=== PATIENT | male | born 1935 | race Caucasian/White ===

== ENCOUNTER 2022-02-09 16:30 | Inpatient (IN) | payer MEDICARE, OTHER ==
[~2022-02-09] VITALS: Ht 172.7 cm; Wt 44.9 kg
--- NOTE | 2022-02-09 16:55 | NUR ---
BIBPA FOR SOB 87% IN ROOM AIR AND COVID + OF TODAY. THE PATIENT IS ATTACHED TO THE MONITOR. THE PATIENT IS PLACED ON OXYGEN 2L/MIN VIA NASAL CANNULA AND SATURATION IS AT 97%. RESPIRATION REGULAR AND UNLABORED. WILL CONTINUE TO MONITOR THE PATIENT.
[2022-02-09] MEDS ORDERED: IV NS 0.9% 1,000 ML BAG IV ONE (17:00)
[2022-02-09] MEDS ORDERED: CEFTRIAXONE 1 G in IV D5W 50 ML IV ONE (17:00)
[2022-02-09] MEDS ORDERED: DEXAMETHASONE SOD PHOSPHATE 6 MG in IV D5W 50 ML IV ONE (17:00)
[2022-02-09] MEDS ORDERED: ASCO-352 PO (17:05)
[2022-02-09] MEDS ORDERED: AMIN887L7 PO (17:05)
[2022-02-09] MEDS ORDERED: TYL2T PO (17:05)
[2022-02-09] MEDS ORDERED: TRAM50TA2 PO (17:05)
[2022-02-09] MEDS ORDERED: RIVA10TA PO (17:05)
[2022-02-09] MEDS ORDERED: ZINC220T3 PO (17:05)
[2022-02-09] MEDS ORDERED: DIGO250T PO (17:05)
[2022-02-09] MEDS ORDERED: ACET-868 PO (17:05)
[2022-02-09] MEDS ORDERED: MULT-754 PO (17:05)
[2022-02-09] MEDS ORDERED: ATOR40TA PO (17:05)
[2022-02-09] MEDS ORDERED: TRAM-351 PO (17:05)
[2022-02-09] MEDS ORDERED: CHOL100043 PO (17:05)
[2022-02-09] MEDS ORDERED: MAGN400O6 PO (17:05)
[2022-02-09] MEDS ORDERED: DOCU-141 PO (17:05)
[2022-02-09] MEDS ORDERED: METO25TA20 PO (17:05)
--- NOTE | 2022-02-09 17:26 | NUR ---
IV LINE ESTABLISHED ON DL #18, BLOOD DRAWN AND SET TO LAB. COVID SWAB DONE AND SENT TO LAB.
[2022-02-09] MEDS ORDERED: CEFTRIAXONE 1GM BAG (ER ONLY) 50 ML IV ONE (17:29)
[2022-02-09] MEDS ORDERED: DEXAMETHASONE SOD PHOSPHATE 10 MG/ML VIAL ONE (17:30)
--- NOTE | 2022-02-09 17:32 | NUR ---
NUMERICAL CONTROL MACHINE MACHINIST AT THE BEDSIDE
[2022-02-09 17:45] LABS: BASOPHILS # (AUTO) 0.1 K/uL (0.0-0.2); HEMATOCRIT 41 % (39-51); HEMOGLOBIN 13.5 g/dL (13.5-17.5); LYMPHOCYTES # (AUTO) 0.2 K/uL (0.8-4.8); LYMPHOCYTES % (AUTO) 1.8 % (20.0-44.0); MEAN CORPUSCULAR HGB CONC 33 g/dl (31.0-36.0); MEAN CORPUSCULAR VOLUME 90 fL (80-96); MONOCYTES # (AUTO) 0.8 K/uL (0.1-1.30); MONOCYTES % (AUTO) 6.4 % (2.0-12.0); NEUTROPHILS % (AUTO) 90.8 % (43.0-81.0); PLATELET COUNT (AUTO) 310 K/uL (150-450); RED BLOOD CELL COUNT(AUTO) 4.52 MIL/uL (4.5-6.0); WHITE BLOOD COUNT (AUTO) 12.1 K/uL (4.3-11.0)
--- NOTE | 2022-02-09 17:48 | NUR ---
MIDLINE ORDER PER DR SORIA. NOTED AND CARRIED OUT.
--- NOTE | 2022-02-09 17:50 | NUR ---
CHANGE IN ORDER FROM MIDLINE TO PICCLINE PER DR SORIA. ORDER READ BACK, VERIFIED. NOTED AND CARRIED OUT.
[2022-02-09 17:51] LABS: BILIRUBIN,URINE NEGATIVE (NEGATIVE); COLOR,URINE DARK YELLOW (YELLOW); LEUKOCYTE ESTERASE ,URINE NEGATIVE (NEGATIVE); NITRITE, URINE NEGATIVE (NEGATIVE); PH,URINE 5.5 (5.0-8.0); PROTEIN,URINE 30 mg/dl (NEGATIVE); UGLUCOSE NEGATIVE (NEGATIVE)
[2022-02-09] MEDS ORDERED: AMIODARONE 150 MG in IV D5W 100 ML IV ONE (18:00)
[2022-02-09] MEDS ORDERED: AMIODARONE 450 MG in IV D5W 250 ML IV ONE (18:00)
[2022-02-09] MEDS ORDERED: DEXAMETHASONE SOD PHOSPHATE 4 MG/ML VIAL IV ONE (18:00)
--- NOTE | 2022-02-09 18:23 | NUR ---
AMIO LOADING DOSE ORDER NOTED. VS TAKEN AND RECORDED.
[2022-02-09 18:26] LABS: CALCIUM, SERUM 8.2 mg/dL (8.5-10.1); CARBON DIOXIDE 28 mmol/L (21-32); CHLORIDE 102 mmol/L (98-107); CREATININE 1.1 mg/dL (0.6-1.3); GLUCOSE 114 mg/dL (74-106); SODIUM SERUM 138 mmol/L (136-145); UREA NITROGEN, BLOOD 37 mg/dL (7-18)
[2022-02-09 18:41] LABS: ALANINE AMINOTRANSFERASE 61 U/L (12-78); ALBUMIN 2.8 g/dL (3.4-5.0); ALKALINE PHOSPHATASE 202 U/L (46-116); ASPARTATE AMINOTRANSFERASE 72 U/L (15-37); BILIRUBIN,DIRECT 0.2 mg/dL (0.0-0.2); BILIRUBIN,TOTAL 0.6 mg/dL (0.2-1.0); TOTAL PROTEIN, SERUM 6.7 g/dL (6.4-8.2)
[2022-02-09 18:47] LABS: BACTERIA,URINE Few /HPF (None Seen); CALCIUM OXALATE CRYSTALS,UR Few /HPF (None Seen); RBC,URINE 51-80 /HPF (0-2); SQUAMOUS EPITHELIAL CELL,UR Few /HPF (None Seen)
--- NOTE | 2022-02-09 18:48 | NUR ---
AMIO 1MG/MIN STARTED. VS TAKEN AND RECORDED.
--- NOTE | 2022-02-09 19:29 | NUR ---
PER HUEY AT FACILITY PATIENT HAS REC'D 15 MG OF XARELTO TODAY AT 0900
--- NOTE | 2022-02-09 19:48 | NUR ---
ICU RM 255
--- NOTE | 2022-02-09 20:07 | NUR ---
PICC LINE NURSE AT BED SIDE FOR PICC LINE INSERTION. DR SORIA SIGNED THE CONSENT
--- NOTE | 2022-02-09 20:14 | NUR ---
REPORT GIVEN TO NIDIA PHAM FOR ZACKARY
--- NOTE | 2022-02-09 20:17 | NUR ---
REVERSE UNIT OPERATOR AT PT'S BEDSIDE
[2022-02-09] MEDS ORDERED: ACETAMINOPHEN PO PRN (20:30)
[2022-02-09] MEDS ORDERED: Z GUARD REMEDY 4 OZ OINT TP PRN (20:30)
[2022-02-09] MEDS ORDERED: TRAMADOL HCL PO PRN (20:30)
[2022-02-09] MEDS ORDERED: MAG HYDROX/AL HYDROX/SIMETH 30 ML UDC PO PRN (20:30)
[2022-02-09] MEDS ORDERED: [UNRECOGNIZED DRUG - OTHER] PO PRN (20:30)
[2022-02-09] MEDS ORDERED: TRAMADOL HCL 50 MG TABLET PO PRN (20:30)
[2022-02-09] MEDS ORDERED: ACETAMINOPHEN 325 MG TABLET PO PRN (20:30)
[2022-02-09] MEDS ORDERED: MAGNESIUM HYDROXIDE 30 ML UDC PO PRN ×2 (20:30)
[2022-02-09] MEDS ORDERED: ONDANSETRON HCL/PF 4 MG/2 ML VIAL IVP PRN (20:30)
--- NOTE | 2022-02-09 20:35 | NUR ---
PICC LINE READY FOR USE PER PICC LINE NURSE
[2022-02-09 21:30] VITALS: BP 125/62
[2022-02-09 21:54] VITALS: BP 125/62
[2022-02-09 22:00] VITALS: BP 97/64
[2022-02-09] MEDS ORDERED: ZOLPIDEM TARTRATE 5 MG TABLET PO PRN (22:00)
[2022-02-09] MEDS: ATORVASTATIN 40 MG TABLET PO SCH (22:04)
[2022-02-09] MEDS ORDERED: AMIODARONE 450 MG in IV D5W 241 ML IV SCH (22:30)
[2022-02-10] VITALS (15 sets, daily range): BP systolic 88–132; BP diastolic 45–83
--- NOTE | 2022-02-10 03:52 | NUR ---
am care given. remaining same oxygen tolerated well. sat 98%. no acute distresmiodarone one bag finished. will monitor vitals.
[2022-02-10 04:03] LABS: BASOPHILS % (AUTO) 0.1 % (0.0-2.0); HEMATOCRIT 36 % (39-51); HEMOGLOBIN 12.1 g/dL (13.5-17.5); LYMPHOCYTES # (AUTO) 0.4 K/uL (0.8-4.8); LYMPHOCYTES % (AUTO) 4.7 % (20.0-44.0); MEAN CORPUSCULAR HGB CONC 34 g/dl (31.0-36.0); MEAN CORPUSCULAR VOLUME 89 fL (80-96); MONOCYTES # (AUTO) 0.3 K/uL (0.1-1.30); MONOCYTES % (AUTO) 3.6 % (2.0-12.0); NEUTROPHILS # (AUTO) 7.3 K/uL (1.8-8.9); NEUTROPHILS % (AUTO) 91.6 % (43.0-81.0); PLATELET COUNT (AUTO) 265 K/uL (150-450); RED BLOOD CELL COUNT(AUTO) 4.02 MIL/uL (4.5-6.0); WHITE BLOOD COUNT (AUTO) 7.9 K/uL (4.3-11.0)
[2022-02-10 04:15] LABS: CALCIUM, SERUM 8.3 mg/dL (8.5-10.1); CARBON DIOXIDE 26 mmol/L (21-32); CHLORIDE 104 mmol/L (98-107); CREATININE 0.9 mg/dL (0.6-1.3); GLUCOSE 121 mg/dL (74-106); MAGNESIUM 1.9 mg/dL (1.8-2.4); PHOSPHORUS 4.2 mg/dL (2.5-4.9); POTASSIUM 4.1 mmol/L (3.5-5.1); SODIUM SERUM 138 mmol/L (136-145); UREA NITROGEN, BLOOD 35 mg/dL (7-18)
[2022-02-10 04:19] LABS: CHOLESTEROL 189 mg/dL (<200); HDL CHOLESTEROL 53 mg/dL (40-60); LDL 118 mg/dL (0-99); TRIGLYCERIDES 70 mg/dL (30-150)
--- NOTE | 2022-02-10 07:26 | NUR ---
WOUND CARE CONSULT: REVIEWED CHART, NURSING DOCUMENTATION AND PHOTOS WHICH INDICATE DRY ABRASIONS TO RT AND LEFT KNEE AREAS, RASH TO PERINEUM, DISCOLORATION TO MULTIPLE AREAS OF BODY, SACRAL INTACT DEEP TISSUE INJURY AND FOOT WOUNDS, PRESENT ON ADMISSION. DPM CONSULT TO BE CALLED TO DR FRANCISCO. RECOMMENDATIONS MADE FOR SKIN PROTECTION. DISCUSSED WITH NURSING STAFF.MD IN AGREEMENT WITH PLAN OF CARE.
--- NOTE | 2022-02-10 07:58 | NUR ---
DR. NARVAEZ WITH DARDEN CATHETER INSERTION ORDER . NOTED AND WILL CARRY OUT.
[2022-02-10] MEDS: DOCUSATE SODIUM 100 MG CAPSULE PO SCH ×2 (08:32→16:59)
[2022-02-10] MEDS: ZINC SULFATE 220 MG CAPSULE PO SCH (08:32)
[2022-02-10] MEDS: CHOLECALCIFEROL 1,000 UNIT TABLET (VIT D3) PO SCH (08:32)
[2022-02-10] MEDS: ASPIRIN 81 MG TAB.CHEW PO SCH (08:32)
[2022-02-10] MEDS: RIVAROXABAN 15 MG TABLET PO SCH (08:34)
[2022-02-10] MEDS: METOPROLOL TARTRATE 25 MG TABLET PO SCH ×2 (08:35→21:49)
[2022-02-10] MEDS: ASCORBIC ACID 500 MG TABLET PO SCH (08:36)
[2022-02-10] MEDS: MULTIVITAMINS,THERAGRAN 1 UDTAB TABLET PO SCH (08:36)
[2022-02-10] MEDS: DIGOXIN 0.25 MG TABLET PO SCH (08:36)
[2022-02-10] MEDS: DEXAMETHASONE SOD PHOSPHATE 10 MG/ML VIAL IV SCH (08:36)
[2022-02-10] MEDS: PROSTAT (PYXIS) 30 ML UDC PO SCH ×2 (08:40→18:03)
[2022-02-10] MEDS ORDERED: METOPROLOL TARTRATE 25 MG TABLET PO SCH (09:00)
[2022-02-10] MEDS: CLOTRIMAZOLE 1% 15 GM TUBE TP SCH ×2 (09:25→17:23)
--- NOTE | 2022-02-10 09:30 | NUR ---
DARDEN CATHETER INSERTION DONE PER PROTOCOL.
--- NOTE | 2022-02-10 10:08 | NUR ---
SPOKE WITH TOR BERRIOS-PATIENT'S DAUGHTER AND MADE AWARE OF THE TRANSFER ORDER TO TELEMETRY UNIT ROOM 106.AND SHE OKAYED WITH IT.
--- NOTE | 2022-02-10 11:35 | NUR ---
PATIENT WAS TRANSFERRED TO TELEMETRY RM 106 PER PROTOCOL, PT. REMAINS STABLE AND NO ACUTE DISTRESS NOTED AT THIS TIME. BEDSIDE REPORT/ENDORSEMENT GIVEN TO CHERYL.
--- NOTE | 2022-02-10 11:35 | NUR ---
RN NOTES: RECEIVED PT FROM ICU BEDSIDE REPORT RECEIVED FROM ALLYSON RN, PT ALERT X 2 WITH PERIODS OF CONFUSION, RESPIRATION IS EVEN AND UNLABORED, O2 SAT 97% ON O2 AT 2L/NC, LEFT UPPER ARM PICC LINE AND SALINE LOCK PATENT AND INTACT, ON CONTACT AND DROPLET ISOLATION FOR COVID, DARDEN CATH PATENT WITH CLEAR YELLOW URINE, BED KEPT IN LOW AND LOCKED POSITIONS, SIDERAILS UP. WILL MONITOR PT
[2022-02-10] MEDS: MUPIROCIN OINT 2% 22 GM TUBE TP SCH (14:43)
[2022-02-10] MEDS ORDERED: CLOTRIMAZOLE 1% 15 GM TUBE TP SCH (17:00)
--- NOTE | 2022-02-10 19:01 | NUR ---
RN CLOSING NOTES: PT IN BED AWAKE & ALERT X 2 WITH PERIODS OF CONFUSION, RESPIRATION IS EVEN AND UNLABORED, O2 SAT 97% ON O2 AT 2L/NC, LEFT UPPER ARM PICC LINE AND SALINE LOCK PATENT AND INTACT, ON CONTACT AND DROPLET ISOLATION FOR COVID, DARDEN CATH PATENT WITH CLEAR YELLOW URINE, BED KEPT IN LOW AND LOCKED POSITIONS, SIDERAILS REMAINS UP, WILL ENDORSE TO ONCOMING SHIFT TO MONITOR
--- NOTE | 2022-02-10 19:30 | NUR ---
EDI MANAGER OPENING NOTES: RECEIVED PT IN BED, A/O X 2-3 WITH PERIODS OF CONFUSION. ON O2 THERAPY VIA NC AT 2 LPM, TOLERATING WELL WITH NO S/SX OF ACUTE DISTRESS NOTED AT THIS TIME. RESPIRATION IS EVEN AND UNLABORED, O2 SAT IS AT 97%. TELE MONITOR SHOWS AFIB CONTROLLED WITH HR IN THE 90S. IV ACCESS NOTED AT LEFT UPPER ARM BOTH PICC LINE AND SALINE LOCK, PATENT AND INTACT. DARDEN CATHETER IN PLACE WITH CLEAR YELLOW URINE DRAINING VIA GRAVITY. KEPT HOB ELEVATED. ALL SAFETY MEASURES IN PLACE: BED IN LOWEST POSITION, LOCKED. BED ALARM ON. SIDE RAILS UP. WILL CONTINUE TO MONITOR FOR ANY CHANGES.
[2022-02-10] MEDS: ATORVASTATIN 40 MG TABLET PO SCH (21:48)
[2022-02-11] VITALS: BP 132/66
[2022-02-11] MEDS: MUPIROCIN OINT 2% 22 GM TUBE TP SCH ×2 (01:31→13:58)
--- NOTE | 2022-02-11 03:05 | NUR ---
RN NOTE PT'S LEADS WERE OFF. TRIED TO REPLACED IT BUT PT REFUSED THREE TIMES. PT SEEMS TO BE CONFUSED AND A LITTLE AGITATED. DID NOT WANT TO BE DISTURBED OR TOUCHED. CHARGE NURSE AASHISH MADE AWARE. INFORMED DR. MUÑOZ TOO REGARDING PT'S REFUSAL TO PUT HIS LEADS ON. WILL CONTINUE TO MONITOR PT CLOSELY.
[2022-02-11 04:00] VITALS: BP 132/66
--- NOTE | 2022-02-11 04:15 | NUR ---
RN NOTE PT REFUSED TO HAVE HIS VITALS SIGNS TAKEN FOR 0000 AND 0400. HE ALSO REFUSED TO BE CLEANED. HE JUST DID NOT WANT TO BE BOTHERED. EXPLAINED TO PT WE NEED TO GET HIS VS TAKEN BUT STILL REFUSED. PT IS A LITTLE AGITATED AND CONFUSED. WILL CONTINUE TO MONITOR PT CLOSELY.
--- NOTE | 2022-02-11 07:20 | NUR ---
RN OPENING NOTES RECEIVED PATIENT FROM NIGHTSHIFT RN. CURRENTLY AWAKE IN BED. ON BEDREST, WITH BED ALARM. IV ACCESS ON DL PICC LINE SALINE LOCK. REFUSING HEART MONITORING AND REFUSING O2 VIA NASAL CANNULA, NO SIGNS OF DISTRESS. REDNESS NOTED THROUGHOUT THE SKIN, NO OPEN WOUNDS. WILL CONTINUE PLAN OF CARE AND ANTICIPATE NEEDS.
[2022-02-11 08:00] VITALS: BP 129/75
--- NOTE | 2022-02-11 08:04 | NUR ---
RN NOTE ROUNDED ON PATIENT. NOTICED CLIN APPLICATION SPECIALIST LEADS WERE DISCONNECTED. WHEN ASKED IF I COULD REATTACHED THE LEADS TO GET A PICTURE OF HIS HEART THE PATIENT REPLIED, 'NO NO NO'. NO SIGNS OF DISTRESS NOTED. PATIENT REPORTED NO SOB . WILL CONTINUE PLAN OF CARE AND ANTICIPATE NEEDS.
[2022-02-11] MEDS: CLOTRIMAZOLE 1% 15 GM TUBE TP SCH ×2 (09:00→17:16)
[2022-02-11] MEDS ORDERED: ATORVASTATIN 10 MG TABLET PO SCH (09:30)
[2022-02-11] MEDS: PROSTAT (PYXIS) 30 ML UDC PO SCH ×2 (09:42→17:19)
[2022-02-11] MEDS: DOCUSATE SODIUM 100 MG CAPSULE PO SCH ×2 (09:43→17:10)
[2022-02-11] MEDS: ZINC SULFATE 220 MG CAPSULE PO SCH (09:43)
[2022-02-11] MEDS: DEXAMETHASONE SOD PHOSPHATE 10 MG/ML VIAL IV SCH (09:43)
[2022-02-11] MEDS: MULTIVITAMINS,THERAGRAN 1 UDTAB TABLET PO SCH (09:43)
[2022-02-11] MEDS: ASCORBIC ACID 500 MG TABLET PO SCH (09:43)
[2022-02-11] MEDS: ASPIRIN 81 MG TAB.CHEW PO SCH (09:43)
[2022-02-11] MEDS: METOPROLOL TARTRATE 25 MG TABLET PO SCH (09:44)
[2022-02-11] MEDS: DIGOXIN 0.25 MG TABLET PO SCH (09:44)
[2022-02-11] MEDS: CHOLECALCIFEROL 1,000 UNIT TABLET (VIT D3) PO SCH (09:44)
[2022-02-11] MEDS: RIVAROXABAN 15 MG TABLET PO SCH (09:45)
[2022-02-11 11:05] LABS: BASOPHILS % (AUTO) 0.3 % (0.0-2.0); EOSINOPHILS % (AUTO) 0.1 % (0.0-6.0); HEMATOCRIT 34 % (39-51); HEMOGLOBIN 11.7 g/dL (13.5-17.5); LYMPHOCYTES # (AUTO) 0.6 K/uL (0.8-4.8); LYMPHOCYTES % (AUTO) 7.8 % (20.0-44.0); MEAN CORPUSCULAR HGB CONC 34 g/dl (31.0-36.0); MEAN CORPUSCULAR VOLUME 89 fL (80-96); MONOCYTES # (AUTO) 0.4 K/uL (0.1-1.30); MONOCYTES % (AUTO) 5.4 % (2.0-12.0); NEUTROPHILS # (AUTO) 6.6 K/uL (1.8-8.9); NEUTROPHILS % (AUTO) 86.4 % (43.0-81.0); PLATELET COUNT (AUTO) 253 K/uL (150-450); RED BLOOD CELL COUNT(AUTO) 3.88 MIL/uL (4.5-6.0); WHITE BLOOD COUNT (AUTO) 7.6 K/uL (4.3-11.0)
[2022-02-11 11:47] LABS: ALBUMIN 2.4 g/dL (3.4-5.0); BILIRUBIN,TOTAL 0.4 mg/dL (0.2-1.0); CALCIUM, SERUM 8.2 mg/dL (8.5-10.1); CREATININE 0.9 mg/dL (0.6-1.3); PHOSPHORUS 2.1 mg/dL (2.5-4.9); POTASSIUM 3.9 mmol/L (3.5-5.1)
[2022-02-11 12:00] VITALS: BP 96/66
[2022-02-11] MEDS ORDERED: DEXA4TAB PO (13:13)
[2022-02-11] MEDS ORDERED: K PHOS NEUTRAL 250 MG TABLET PO ONE (15:30)
[2022-02-11 16:00] VITALS: BP 105/67
--- NOTE | 2022-02-11 16:05 | NUR ---
CONTINUING EDUCATION INSTRUCTOR NOTE CALLED TO SNF , SPOKE WITH PADDY REPORT GIVEN ALSO SPOKE WITH TOR DAUGHTER AWARE THAT PATIENT WILL BE DISCHARGE TO SNF
--- NOTE | 2022-02-11 18:48 | NUR ---
outdoor fitness trainer note [facility] . All discharge instructions were provided to the ALEJANDRO in print and verbal.PICC line was removed.Report was given to the peoplesoft taleo manager Amie. Patient is discharged from the [facility]
== END 2022-02-11 19:00 | DRG 177 ==
LOC: ER 16:36 → TRANSITION 19:51 → ICU 20:46 → TELE1 02-10 12:01
PROVIDERS: ADMIT Family Medicine; ATTEND Internal Medicine
PROC: 02HV33Z Insertion of Infusion Device into Superior Vena Cava, Percutaneous Approach (ICD-10-PCS; principal; 2022-02-09)
PROC: B548ZZA Ultrasonography of Superior Vena Cava, Guidance (ICD-10-PCS; 2022-02-09)
DX: U07.1 COVID-19 (principal); J96.01 Acute respiratory failure with hypoxia; I21.A1 Myocardial infarction type 2; N17.0 Acute kidney failure with tubular necrosis; D68.59 Other primary thrombophilia; E44.0 Moderate protein-calorie malnutrition; I69.351 Hemiplegia and hemiparesis following cerebral infarction affecting right dominant side; N39.0 Urinary tract infection, site not specified; I48.91 Unspecified atrial fibrillation; I25.10 Atherosclerotic heart disease of native coronary artery without angina pectoris; Z79.01 Long term (current) use of anticoagulants; R27.8 Other lack of coordination; Z79.899 Other long term (current) drug therapy; D72.829 Elevated white blood cell count, unspecified; I95.9 Hypotension, unspecified; R73.9 Hyperglycemia, unspecified; I11.9 Hypertensive heart disease without heart failure; E88.09 Other disorders of plasma-protein metabolism, not elsewhere classified; F09 Unspecified mental disorder due to known physiological condition; M60.9 Myositis, unspecified; Z87.891 Personal history of nicotine dependence; Z91.19 Patient's noncompliance with other medical treatment and regimen; B35.1 Tinea unguium; E78.5 Hyperlipidemia, unspecified; M62.472 Contracture of muscle, left ankle and foot; M62.471 Contracture of muscle, right ankle and foot; S90.01XA Contusion of right ankle, initial encounter; X58.XXXA Exposure to other specified factors, initial encounter; Y92.9 Unspecified place or not applicable; L90.9 Atrophic disorder of skin, unspecified; L97.519 Non-pressure chronic ulcer of other part of right foot with unspecified severity; L97.529 Non-pressure chronic ulcer of other part of left foot with unspecified severity; Z87.81 Personal history of (healed) traumatic fracture
CPT/HCPCS: 36415; 71045-TC; 80048-TC; 80053-TC; 80061-TC; 80076-TC; 80162-TC; 81001; 83605-TC; 83735-TC; 83880; 84100-TC; 84484-TC; 85025-TC; 85378-TC; 85730-TC; 86140-TC; 87040-TC; 87086-TC; 93307-TC; 94799-TC; C9803; G0378; J0282; J0696; J1100; J3490; J7030; J7060

== ENCOUNTER 2022-02-21 14:52 | Inpatient (IN) | payer MEDICARE, OTHER ==
[~2022-02-21] VITALS: Ht 172.7 cm; Wt 54.5 kg
[~2022-02-21 14:52] MED LIST: ACET-868 PO; AMIN887L7 PO; ASCO-352 PO; ATOR40TA PO; CHOL100043 PO; DEXA4TAB PO; DIGO250T PO; DOCU-141 PO; MAGN400O6 PO; METO25TA20 PO; MULT-754 PO; RIVA10TA PO; TRAM-351 PO; TRAM50TA2 PO; TYL2T PO; ZINC220T3 PO
--- NOTE | 2022-02-21 14:59 | NUR ---
BIB RA [facility] FROM [facility],MORE ALTERED THAN NORMAL AND HOT TO TOUCH. PATIENT ATTCHED OT MONITOR, HR IS ELEVATED, RECTAL TEMP OF 103.4 MD AWARE. A&OX1. NONREBREATHER APPLIED 15L. DR SORIA AT BEDSIDE. AWAITING EVAL.
[2022-02-21] MEDS ORDERED: PIPERACILLIN /TAZOBACTAM 3.375 G in IV D5W 50 ML IV ONE (15:00)
[2022-02-21] MEDS ORDERED: IV NS 0.9% 1,000 ML BAG IV ONE ×2 (15:00→16:00)
[2022-02-21] MEDS ORDERED: ACETAMINOPHEN 650 MG/SUPP.RECT RC ONE ×2 (15:04→15:30)
--- NOTE | 2022-02-21 15:05 | NUR ---
IV ESTBALIHSED R AC 18G. LABS DRAWN AND COLLECTED AT BEDSIDE. ADDITION IV ESTABLIHSED L AC 18G.
--- NOTE | 2022-02-21 15:06 | NUR ---
COVID TEST COLLECTED AND SENT
[2022-02-21] MEDS ORDERED: DEXAMETHASONE SOD PHOSPHATE 10 MG/ML VIAL ONE (15:09)
--- NOTE | 2022-02-21 15:12 | NUR ---
16FR DARDEN CATHETER PLACE, 40CC OF URINE OUTPUT. URINE COLLECTED AND SENT TO LAB.
[2022-02-21] MEDS ORDERED: HONE15GE TP (15:14)
[2022-02-21] MEDS ORDERED: POVI3780 TP (15:14)
[2022-02-21 15:19] LABS: BASOPHILS # (AUTO) 0.2 K/uL (0.0-0.2); BASOPHILS % (AUTO) 1.1 % (0.0-2.0); HEMATOCRIT 39 % (39-51); HEMOGLOBIN 12.7 g/dL (13.5-17.5); LYMPHOCYTES # (AUTO) 0.3 K/uL (0.8-4.8); LYMPHOCYTES % (AUTO) 1.9 % (20.0-44.0); MEAN CORPUSCULAR HGB CONC 33 g/dl (31.0-36.0); MEAN CORPUSCULAR VOLUME 90 fL (80-96); MONOCYTES # (AUTO) 0.9 K/uL (0.1-1.30); MONOCYTES % (AUTO) 6.1 % (2.0-12.0); NEUTROPHILS # (AUTO) 13.6 K/uL (1.8-8.9); NEUTROPHILS % (AUTO) 90.9 % (43.0-81.0); PLATELET COUNT (AUTO) 286 K/uL (150-450); RED BLOOD CELL COUNT(AUTO) 4.34 MIL/uL (4.5-6.0)
--- NOTE | 2022-02-21 15:20 | NUR ---
MOVE SHEET SUBMITTED.
--- NOTE | 2022-02-21 15:28 | NUR ---
PT TAKEN TO CT VIA [facility]
[2022-02-21] MEDS ORDERED: DEXAMETHASONE SOD PHOSPHATE 4 MG/ML VIAL IV ONE (15:30)
--- NOTE | 2022-02-21 15:42 | NUR ---
ORION MARISELA COLLECTED AND SENT
[2022-02-21 15:43] LABS: BILIRUBIN,URINE NEGATIVE (NEGATIVE); COLOR,URINE YELLOW (YELLOW); LEUKOCYTE ESTERASE ,URINE NEGATIVE (NEGATIVE); NITRITE, URINE NEGATIVE (NEGATIVE); PROTEIN,URINE 100 mg/dl (NEGATIVE); UGLUCOSE NEGATIVE (NEGATIVE)
--- NOTE | 2022-02-21 15:51 | NUR ---
RT AT BEDSIDE FOR ABG
[2022-02-21] MEDS ORDERED: VANCOMYCIN 1 GM in IV D5W 250 ML IV ONE (16:00)
[2022-02-21 16:03] LABS: ABG BASE EXCESS 2.1 mmol/L; ABG PH 7.566 (7.350-7.450); ABG PO2 127.9 mmHg (75.0-100.0); COHb 0.1 % (0.5-1.5); MetHb 0.3 % (0.0-1.5); O2Hb 98.3 % (94.0-97.0); SITE, ABG Left Radial; VENT MODE, BG 15 L NRB
[2022-02-21 16:05] LABS: ALANINE AMINOTRANSFERASE 36 U/L (12-78); ALBUMIN 2.3 g/dL (3.4-5.0); ALKALINE PHOSPHATASE 147 U/L (46-116); ASPARTATE AMINOTRANSFERASE 23 U/L (15-37); BILIRUBIN,DIRECT 0.2 mg/dL (0.0-0.2); BILIRUBIN,TOTAL 0.9 mg/dL (0.2-1.0); CALCIUM, SERUM 9.1 mg/dL (8.5-10.1); CARBON DIOXIDE 27 mmol/L (21-32); CHLORIDE 103 mmol/L (98-107); CREATININE 1.1 mg/dL (0.6-1.3); GLUCOSE 155 mg/dL (74-106); POTASSIUM 4.9 mmol/L (3.5-5.1); SODIUM SERUM 137 mmol/L (136-145); TOTAL PROTEIN, SERUM 6.6 g/dL (6.4-8.2); UREA NITROGEN, BLOOD 31 mg/dL (7-18)
--- NOTE | 2022-02-21 16:21 | NUR ---
BED ASSIGNED,ICU 254
[2022-02-21 16:24] LABS: BACTERIA,URINE RARE /HPF (None Seen); CALCIUM OXALATE CRYSTALS,UR Few /HPF (None Seen); MUCUS,URINE Many /LPF (None Seen); RBC,URINE 51-80 /HPF (0-2); SQUAMOUS EPITHELIAL CELL,UR 0-2 /HPF (None Seen)
--- NOTE | 2022-02-21 16:37 | NUR ---
[facility] CALLED CANDY PULLER PAGED.
--- NOTE | 2022-02-21 16:50 | NUR ---
REPORT GIVEN TO CONSUELO FOR ZACKARY
--- NOTE | 2022-02-21 16:50 | NUR ---
Ryanne wang in [facility] - 02/21/22 at 1726 by AKOSUA REPORT GIVEN TO ROXANNE RAYMUNDO
[2022-02-21] MEDS ORDERED: MAG HYDROX/AL HYDROX/SIMETH 30 ML UDC PO PRN (17:00)
[2022-02-21] MEDS ORDERED: ONDANSETRON HCL/PF 4 MG/2 ML VIAL IVP PRN (17:00)
[2022-02-21] MEDS ORDERED: Z GUARD REMEDY 4 OZ OINT TP PRN (17:00)
[2022-02-21] MEDS: DOCUSATE SODIUM 100 MG CAPSULE PO SCH (17:00)
[2022-02-21] MEDS ORDERED: MAGNESIUM HYDROXIDE 30 ML UDC PO PRN ×2 (17:00)
[2022-02-21] MEDS ORDERED: ACETAMINOPHEN 325 MG TABLET PO PRN (17:00)
--- NOTE | 2022-02-21 18:30 | NUR ---
EXECUTIVE CANDIDATE DEVELOPER RECEIVED PT FROM ER VIA GURNEY WITH MONITOR. PT ADMITTED FRANCI OVERFLOW FOR SEPSIS, PNA. PT OPENS EYES SPONTANEOUSLY BUT CONFUSED. SPO2 95% ON 6L N/C. PT HAS WEAK COUGH, NO EXPECTORATION. PT PULLS IV LINES AND EQUIPTMENT OFF BY REPORT FROM ER. SOFT WRISTS RESTRAINTS PLACED FOR SAFETY. PICTURES TAKEN OF LESIONS ON RIGHT SHOULDER AND RIGHT FOOT.
--- NOTE | 2022-02-21 18:30 | NUR ---
PT TRANSFERRED TO ICU WITH ACLS PROTOCOLS IN PLACE.
[2022-02-21 18:34] VITALS: BP 108/71
[2022-02-21 19:00] VITALS: BP 90/56
[2022-02-21 20:00] VITALS: BP 119/70
[2022-02-21] MEDS: ZOSYN IVPB 2.25 G in IV D5W 50ml IV SCH (20:45)
[2022-02-21] MEDS: IV NS 0.9% 1,000 ML IV PRN (20:45)
[2022-02-21 21:00] VITALS: BP 111/72
[2022-02-21 22:00] VITALS: BP 103/63
[2022-02-21 23:00] VITALS: BP 91/65
[2022-02-22] VITALS (18 sets, daily range): BP systolic 50–134; BP diastolic 39–94
[2022-02-22] MEDS: ZOSYN IVPB 2.25 G in IV D5W 50ml IV SCH ×4 (02:30→21:08)
[2022-02-22 05:19] LABS: BASOPHILS % (AUTO) 0.1 % (0.0-2.0); HEMATOCRIT 37 % (39-51); HEMOGLOBIN 12.2 g/dL (13.5-17.5); LYMPHOCYTES # (AUTO) 0.4 K/uL (0.8-4.8); LYMPHOCYTES % (AUTO) 2.3 % (20.0-44.0); MEAN CORPUSCULAR HGB CONC 33 g/dl (31.0-36.0); MEAN CORPUSCULAR VOLUME 90 fL (80-96); MONOCYTES # (AUTO) 0.7 K/uL (0.1-1.30); MONOCYTES % (AUTO) 4.8 % (2.0-12.0); NEUTROPHILS # (AUTO) 14.4 K/uL (1.8-8.9); NEUTROPHILS % (AUTO) 92.8 % (43.0-81.0); PLATELET COUNT (AUTO) 296 K/uL (150-450); RED BLOOD CELL COUNT(AUTO) 4.12 MIL/uL (4.5-6.0); WHITE BLOOD COUNT (AUTO) 15.5 K/uL (4.3-11.0)
[2022-02-22 05:34] LABS: CALCIUM, SERUM 8.8 mg/dL (8.5-10.1); CARBON DIOXIDE 29 mmol/L (21-32); CHLORIDE 104 mmol/L (98-107); CREATININE 0.9 mg/dL (0.6-1.3); GLUCOSE 124 mg/dL (74-106); MAGNESIUM 1.9 mg/dL (1.8-2.4); PHOSPHORUS 2.7 mg/dL (2.5-4.9); POTASSIUM 4.8 mmol/L (3.5-5.1); SODIUM SERUM 138 mmol/L (136-145); UREA NITROGEN, BLOOD 27 mg/dL (7-18)
--- NOTE | 2022-02-22 07:30 | NUR ---
RN NOTES PT FOUND SEMI FOWLERS DISPLAYING NO S/S OF DISTRESS, PT ENDORSES NO PAIN AND IS BREATHING EVEN AND UNLABORED ON 2L O2 NC. PT IS A&OX2-3, PT ABLE TO MAKE NEEDS KNOWN BUT ALSO FORGETFUL. L FA 18G IS PATIENT AND INTACT. BILATERAL SOFT WRISTS APPLIED, PULSES PALPATED DISTALLY AND CAP REFILL < 3 SECONDS BILATERALLY. DARDEN CATH RESERVOIR BELOW PATIENT DRAINING BY GRAVITY. R LEG CONTRACTED. RN WILL CONTINUE CARE PLAN AND ANTICIPATE NEEDS. SAFETY MEASURES IN PLACE, BED LOCKED AND IN LOWEST POSITION, SIDE RAILS UPX2, CALL LIGHT WITHIN REACH, BED ALARM ARMED. PT VERBALIZES UNDERSTANDING ON USE OF CALL LIGHT.
[2022-02-22] MEDS: RIVAROXABAN 10 MG TABLET PO SCH (08:20)
[2022-02-22] MEDS: DOCUSATE SODIUM 100 MG CAPSULE PO SCH ×2 (08:21→18:20)
[2022-02-22] MEDS: DIGOXIN 0.25 MG TABLET PO SCH (08:21)
[2022-02-22] MEDS: ASCORBIC ACID 500 MG TABLET PO SCH (08:21)
[2022-02-22] MEDS: ENSURE ENLIVE 237 ML LIQUID (VANILLA) PO SCH ×2 (12:00→18:21)
[2022-02-22] MEDS: VANCOMYCIN 0.75 GM in IV D5W 250 ML IV SCH (13:43)
[2022-02-22] MEDS: IV NS 0.9% 1,000 ML IV PRN (13:47)
[2022-02-22] MEDS ORDERED: VANCOMYCIN 1 GM in IV D5W 250 ML IV SCH (16:00)
--- NOTE | 2022-02-22 16:00 | NUR ---
RN NOTE PT DOWNGRADED TO FRANCI, PRIMARY RN FOLLOWED TO CONTINUE CARE PLAN
--- NOTE | 2022-02-22 19:20 | NUR ---
RN NOTES PT FOUND SEMI FOWLERS DISPLAYING NO S/S OF DISTRESS, PT ENDORSES NO PAIN AND IS BREATHING EVEN AND UNLABORED ON 2L O2 NC. R FA 20G IS PATIENT AND INTACT. BILATERAL SOFT WRISTS APPLIED, PULSES PALPATED DISTALLY AND CAP REFILL < 3 SECONDS BILATERALLY. DARDEN CATH RESERVOIR BELOW PATIENT DRAINING BY GRAVITY. R LEG CONTRACTED. SBAR AND REPORT GIVEN TO LIVER TRIMMER, ALL QUESTIONS ANSWERED. SAFETY MEASURES IN PLACE, BED LOCKED AND IN LOWEST POSITION, SIDE RAILS UPX2, CALL LIGHT WITHIN REACH, BED ALARM ARMED. PT ENDORSED IN STABLE CONDITION FOR ZACKARY.
--- NOTE | 2022-02-22 19:30 | NUR ---
FRANCI/ACCESS REGISTRAR RECIEVED REPORT FROM DAY NURSE, SEE FLOWSHEET FOR ASSESSMENT
--- NOTE | 2022-02-22 20:45 | NUR ---
FRANCI/DRIVER EDUCATION INSTRUCTOR PT APPEARS TO HAVE AN EVEL. OF MANY WOUND. WOUND NURSE CONSULT WAS PLACED.
--- NOTE | 2022-02-22 20:51 | NUR ---
FRANCI/MUD LOGGER POSITIVE BLOOD CULTURE COCCI AND CLUSTERS, NOTIFIED THE MD ELECT EQUIP MAINT ENG JAD. ID IS ON THE CASE AND PT IS PACO
--- NOTE | 2022-02-22 20:55 | NUR ---
2054 HARDWARE ENGINEER Kayleigh ordered to add Vancomycin to for blood culture result. Informed her that patient already on Vancomycin.
[2022-02-23] VITALS: BP 118/69
[2022-02-23] MEDS: VANCOMYCIN 0.75 GM in IV D5W 250 ML IV SCH ×2 (00:47→13:11)
[2022-02-23] MEDS: ZOSYN IVPB 2.25 G in IV D5W 50ml IV SCH ×4 (03:27→20:18)
[2022-02-23 04:00] VITALS: BP 118/74
[2022-02-23 06:12] LABS: BASOPHILS % (AUTO) 0.1 % (0.0-2.0); HEMATOCRIT 34 % (39-51); HEMOGLOBIN 11.3 g/dL (13.5-17.5); LYMPHOCYTES # (AUTO) 0.5 K/uL (0.8-4.8); LYMPHOCYTES % (AUTO) 3.1 % (20.0-44.0); MEAN CORPUSCULAR HGB CONC 33 g/dl (31.0-36.0); MEAN CORPUSCULAR VOLUME 89 fL (80-96); MONOCYTES % (AUTO) 6.9 % (2.0-12.0); NEUTROPHILS # (AUTO) 13.4 K/uL (1.8-8.9); NEUTROPHILS % (AUTO) 89.9 % (43.0-81.0); PLATELET COUNT (AUTO) 257 K/uL (150-450); RED BLOOD CELL COUNT(AUTO) 3.82 MIL/uL (4.5-6.0); WHITE BLOOD COUNT (AUTO) 14.9 K/uL (4.3-11.0)
[2022-02-23 06:51] LABS: CALCIUM, SERUM 8.8 mg/dL (8.5-10.1); CARBON DIOXIDE 24 mmol/L (21-32); CHLORIDE 103 mmol/L (98-107); CREATININE 0.9 mg/dL (0.6-1.3); GLUCOSE 101 mg/dL (74-106); MAGNESIUM 1.9 mg/dL (1.8-2.4); POTASSIUM 3.9 mmol/L (3.5-5.1); SODIUM SERUM 136 mmol/L (136-145); UREA NITROGEN, BLOOD 28 mg/dL (7-18)
--- NOTE | 2022-02-23 07:00 | NUR ---
RN NOTE RECEIVED PATIENT IN BED RESTING ALERT ORIENTED X2 VERBALLY RESPONSIVE ON 2L NASAL CANNULA O2:97% IV SITE IS ON RIGHT FOREARM INTACT PATENT ON IV HYDRATION NS 75CC/HR,DARDEN CATH IN PLACE URINE DRAINING YELLOW BY GRAVITY,BILATERAL WRIST SOFT RESTRAIN IN PLACE WILL CHECK EVERY 15 MINS FOR SKIN BREAK DOWN AND CIRCULATION,SAFETY MEASURE IMPLEMENT BED IN LOW POSITION AND LOCKED,HEAD OF THE BED ELEVATED CONTINUE TO MONITOR.
[2022-02-23] MEDS: ENSURE ENLIVE 237 ML LIQUID (VANILLA) PO SCH ×3 (07:40→16:47)
[2022-02-23 08:00] VITALS: BP 111/44
[2022-02-23] MEDS: RIVAROXABAN 10 MG TABLET PO SCH (08:26)
[2022-02-23] MEDS: DIGOXIN 0.25 MG TABLET PO SCH (08:27)
[2022-02-23] MEDS: ASCORBIC ACID 500 MG TABLET PO SCH (08:27)
[2022-02-23] MEDS: DOCUSATE SODIUM 100 MG CAPSULE PO SCH ×2 (08:27→16:16)
--- NOTE | 2022-02-23 10:45 | NUR ---
WOUND CARE CONSULT: REVIEWED CHART, NURSING DOCUMENTATION AND PHOTOS WHICH INDICATE MULTIPLE WOUNDS AND SKIN ISSUES PRESENT ON ADMISSION INCLUDING RT HEEL/FOOT WOUND, RT HIP, UPPER BACK AND SACRAL INTACT DEEP TISSUE INJURIES/DISCOLORATIONS. DR FRANCISCO NOTIFIED OF DPM CONSULT REQUEST. RECOMMENDATIONS MADE FOR SKIN PROTECTION. DISCUSSED WITH NURSING STAFF. MD IN AGREEMENT WITH PLAN OF CARE.
[2022-02-23 12:00] VITALS: BP 94/57
[2022-02-23 16:00] VITALS: BP 109/71
[2022-02-23] MEDS ORDERED: K PHOS NEUTRAL 250 MG TABLET PO ONE (16:00)
--- NOTE | 2022-02-23 17:58 | NUR ---
RN NOTE RECIEVED LAB RESULTS FROM [facility] PATIENT POSITIVE FOR MRSA NARIS CALLED DR BARGER AND RECEIVED ORDER FOR BACTROBAN Q12HR FOR 5 DAYS NOTED AND CARRIED OUT.
--- NOTE | 2022-02-23 19:01 | NUR ---
RN NOTE PATIENT REMAINS ON ALERT ORIENTED X2 VERBALLY RESPONSIVE ON 2L OXYGEN VIA NASAL CANNULA O2:98% NO SOB NOT ACUTE DISTRESS NOTED ALL DUE MEDS GIVEN MD ORDERED KEPT CLEAN AND DRY ALL THE TIME,IV HYDRATION NS 75CC/HR ALL NEEDS MET ENDORSE NEXT COMING SHIFT FOR CONTINUATION OF CARE.
--- NOTE | 2022-02-23 19:41 | NUR ---
MACHINE RIVETER OPENING NOTE RECEIVED PT AWAKE IN BED. A/O X2. PT ON 2 LPM VIA NC, SATURATING WELL. NO SOB OR S/S OF RESPIRATORY DISTRESS. ON EXTERNAL MARINE PIPEFITTER HELPER READING ST. IV ACCESS RFA 20 GAUGE RUNNING NS @ 75 ML/HR. DARDEN IN PLACE AND DRAINING YELLOW URINE. SAFETY PRECAUTIONS IN PLACE. BED IN LOWEST LOCKED POSITION, HOB ELEVATED, SIDE RAILS UP X3, AND CALL LIGHT AND TABLE WITHIN REACH. ALL NEEDS MET AT THIS TIME.
[2022-02-23 20:00] VITALS: BP 149/73
[2022-02-23] MEDS: MUPIROCIN OINT 2% 22 GM TUBE NS SCH (20:18)
[2022-02-24] VITALS: BP 119/70
[2022-02-24] MEDS: VANCOMYCIN 0.75 GM in IV D5W 250 ML IV SCH ×2 (00:01→14:18)
[2022-02-24] MEDS: IV NS 0.9% 1,000 ML IV PRN ×2 (00:01→23:07)
[2022-02-24] MEDS: ZOSYN IVPB 2.25 G in IV D5W 50ml IV SCH ×2 (03:38→08:56)
[2022-02-24 04:00] VITALS: BP 117/71
--- NOTE | 2022-02-24 06:56 | NUR ---
SAND BLASTER CLOSING NOTE PT AWAKE IN BED. A/O X2. PT ON 2 LPM VIA NC, SATURATING WELL. NO SOB OR S/S OF RESPIRATORY DISTRESS. ON EXTERNAL AIRDROP SYSTEMS TECHNICIAN READING CONTROLLED AFIB. IV ACCESS RFA 20 GAUGE RUNNING NS @ 75 ML/HR. DARDEN IN PLACE AND DRAINING TEA COLORED URINE. ALL DUE MEDS GIVEN ORDERED. SAFETY PRECAUTIONS IN PLACE AT ALL TIMES. BED IN LOWEST LOCKED POSITION, HOB ELEVATED, SIDE RAILS UP X3, AND CALL LIGHT AND TABLE WITHIN REACH. ALL NEEDS MET AT THIS TIME AND WILL ENDORSE TO ONCOMING NURSE FOR ZACKARY.
--- NOTE | 2022-02-24 07:20 | NUR ---
RN am note Patient is in bed , ,sleeping , receiveing O 2 via n/c 2L/min . breathinh un labbpred . Patient has Saline lock RFA 20 gait, with NS running at 75 ml/hr. Patient also ghas a Jarrett Cath with clean yellowurine, Patient is at risk for fall, on soft restrain both hands. Bed is at lowest position , bed side rails are up , bed alarm is on , bed is at lowest position , will continue to monitor
[2022-02-24 07:48] LABS: BASOPHILS % (AUTO) 0.1 % (0.0-2.0); HEMATOCRIT 32 % (39-51); HEMOGLOBIN 10.6 g/dL (13.5-17.5); LYMPHOCYTES # (AUTO) 0.3 K/uL (0.8-4.8); LYMPHOCYTES % (AUTO) 2.5 % (20.0-44.0); MEAN CORPUSCULAR HGB CONC 33 g/dl (31.0-36.0); MEAN CORPUSCULAR VOLUME 89 fL (80-96); MONOCYTES # (AUTO) 0.7 K/uL (0.1-1.30); MONOCYTES % (AUTO) 5.8 % (2.0-12.0); NEUTROPHILS # (AUTO) 11.2 K/uL (1.8-8.9); NEUTROPHILS % (AUTO) 91.6 % (43.0-81.0); PLATELET COUNT (AUTO) 266 K/uL (150-450); RED BLOOD CELL COUNT(AUTO) 3.59 MIL/uL (4.5-6.0); WHITE BLOOD COUNT (AUTO) 12.2 K/uL (4.3-11.0)
[2022-02-24 08:00] VITALS: BP 120/71
[2022-02-24 08:00] LABS: CALCIUM, SERUM 8.3 mg/dL (8.5-10.1); CARBON DIOXIDE 24 mmol/L (21-32); CHLORIDE 103 mmol/L (98-107); CREATININE 0.8 mg/dL (0.6-1.3); GLUCOSE 99 mg/dL (74-106); POTASSIUM 3.5 mmol/L (3.5-5.1); SODIUM SERUM 137 mmol/L (136-145); UREA NITROGEN, BLOOD 25 mg/dL (7-18)
[2022-02-24] MEDS: MUPIROCIN OINT 2% 22 GM TUBE NS SCH ×2 (08:46→20:19)
[2022-02-24] MEDS: ENSURE ENLIVE 237 ML LIQUID (VANILLA) PO SCH ×3 (08:46→17:37)
[2022-02-24] MEDS: DOCUSATE SODIUM 100 MG CAPSULE PO SCH ×2 (08:50→17:40)
[2022-02-24] MEDS: ASCORBIC ACID 500 MG TABLET PO SCH (08:50)
[2022-02-24] MEDS: DIGOXIN 0.25 MG TABLET PO SCH (08:50)
[2022-02-24] MEDS: RIVAROXABAN 10 MG TABLET PO SCH (08:52)
[2022-02-24 12:00] VITALS: BP 105/60
[2022-02-24] MEDS: CEFEPIME 2 GM in IV D5W 100 ML IV SCH ×2 (12:11→23:09)
--- NOTE | 2022-02-24 12:48 | NUR ---
RN note patient took awayyje N/V O 2 , and now on room air , breathing unlabored , no s/s fof distress, O 2 sat 97 %
[2022-02-24 16:00] VITALS: BP 140/77
--- NOTE | 2022-02-24 18:53 | NUR ---
RN closing note . Patient had Pace macerinsertion today , got back to the unit at 1620 , on room air , breathing un labored , no sighs of the distress, deniels any pain or discomfort. Patient still has Jarrett Cath , with clear yellow urine Patient has Continuw Fluid running , PICC line on the DL , 0.45% of the NS Potassium Cloride at 50 ml/hr. Bed is at lowest position .bed side rails are up , call light within reach .
--- NOTE | 2022-02-24 19:29 | NUR ---
MANAGER E LEARNING OPENING NOTE RECEIVED PT AWAKE IN BED. A/O X2. PT ON 2 LPM VIA NC, SATURATING WELL. NO SOB OR S/S OF RESPIRATORY DISTRESS. BREATHING EVEN AND UNLABORED, ON CARDIAC MONITORING READING ST. IV ACCESS RFA #20G RUNNING NS @ 75 ML/HR. DARDEN IN PLACE AND DRAINING YELLOW URINE. SAFETY PRECAUTIONS IN PLACE. BED IN LOWEST LOCKED POSITION, HOB ELEVATED, SIDE RAILS UP X3, AND CALL LIGHT WITHIN REACH. WILL CONT TO MONITOR THROUGHOUT THE SHIFT.
[2022-02-24 20:00] VITALS: BP 90/66
[2022-02-25] VITALS: BP 116/57
[2022-02-25] MEDS: VANCOMYCIN 0.75 GM in IV D5W 250 ML IV SCH ×2 (02:33→12:57)
[2022-02-25 04:00] VITALS: BP 116/68
--- NOTE | 2022-02-25 06:34 | NUR ---
BOW TACKER CLOSING NOTE PT REMAINS IN BED. A/O X2. PT ON 2 LPM VIA NC, TOLERATING WELL. NO SOB OR S/S OF RESPIRATORY DISTRESS. BREATHING EVEN AND UNLABORED, ON CARDIAC MONITORING READING SR-ST. IV ACCESS RFA #20G RUNNING NS @ 75 ML/HR. DARDEN IN PLACE AND DRAINING YELLOW URINE. SAFETY PRECAUTIONS IN PLACE. ALL DUE MEDS GIVEN, KEPT DRY AND CLEAN, BED IN LOWEST AND LOCKED POSITION, HOB ELEVATED, SIDE RAILS UP X3, AND CALL LIGHT WITHIN REACH. WILL ENDORSE TO AM SHIFT NURSE.
[2022-02-25 07:11] LABS: BASOPHILS % (AUTO) 0.1 % (0.0-2.0); EOSINOPHILS % (AUTO) 0.1 % (0.0-6.0); HEMATOCRIT 31 % (39-51); HEMOGLOBIN 10.6 g/dL (13.5-17.5); LYMPHOCYTES # (AUTO) 0.5 K/uL (0.8-4.8); LYMPHOCYTES % (AUTO) 4.2 % (20.0-44.0); MEAN CORPUSCULAR HGB CONC 35 g/dl (31.0-36.0); MEAN CORPUSCULAR VOLUME 88 fL (80-96); MONOCYTES # (AUTO) 0.5 K/uL (0.1-1.30); MONOCYTES % (AUTO) 4.5 % (2.0-12.0); NEUTROPHILS # (AUTO) 10.4 K/uL (1.8-8.9); NEUTROPHILS % (AUTO) 91.1 % (43.0-81.0); PLATELET COUNT (AUTO) 274 K/uL (150-450); RED BLOOD CELL COUNT(AUTO) 3.49 MIL/uL (4.5-6.0); WHITE BLOOD COUNT (AUTO) 11.4 K/uL (4.3-11.0)
[2022-02-25 07:30] LABS: CREATININE 0.6 mg/dL (0.6-1.3); MAGNESIUM 1.8 mg/dL (1.8-2.4); PHOSPHORUS 1.7 mg/dL (2.5-4.9); POTASSIUM 3.2 mmol/L (3.5-5.1)
--- NOTE | 2022-02-25 07:30 | NUR ---
RN OPENING NOTE PT OBSERVED IN BED SLEEPING. PT IS ON 2L NC SAT 96% TOLERATING WELL WITH NO SIGNS OF LABORED BREATHING OR DISTRESS. PT IS A/OX2-[address] >100. FC IS IN PLACE DRAINING URINE TO GRAVITY. PT IS ON BILATERAL SOFT WRIST RESTRAINTS AT THIS TIME. IV ACCESS R FA20G INFUSING WITH NS @ 75ML/HR. BED IS LOCKED IN LOWEST POSITION X2 BED RAILS UP AND ALL HOSPITAL SAFETY PROTOCOLS ARE IN PLACE. WILL CONTINUE TO MONITOR THIS SHIFT.
[2022-02-25 08:00] VITALS: BP 109/57
[2022-02-25] MEDS: DOCUSATE SODIUM 100 MG CAPSULE PO SCH ×2 (09:00→09:49)
[2022-02-25] MEDS ORDERED: VANC750F2 IV (09:44)
[2022-02-25] MEDS ORDERED: CEFE2FRO IV (09:44)
[2022-02-25] MEDS: ENSURE ENLIVE 237 ML LIQUID (VANILLA) PO SCH ×2 (09:45→11:50)
[2022-02-25] MEDS: MUPIROCIN OINT 2% 22 GM TUBE NS SCH (09:45)
[2022-02-25] MEDS: ASCORBIC ACID 500 MG TABLET PO SCH (09:46)
[2022-02-25] MEDS: DIGOXIN 0.25 MG TABLET PO SCH (09:46)
[2022-02-25] MEDS: RIVAROXABAN 10 MG TABLET PO SCH (09:49)
[2022-02-25] MEDS: POTASSIUM CHLORIDE 20 MEQ TAB.PRT.SR PO SCH ×3 (09:54→12:53)
[2022-02-25] MEDS: Magnesium 1GM/D5W 100ML PREMIX 100 ML IV SCH ×2 (09:55→10:50)
--- NOTE | 2022-02-25 11:45 | NUR ---
RN NOTE: [facility] REPORT GIVEN TO ANKIT NGUYEN. ESTIMATED ETA OF PICKUP IS 1300.
[2022-02-25] MEDS: CEFEPIME 2 GM in IV D5W 100 ML IV SCH (11:50)
[2022-02-25] MEDS ORDERED: K PHOS NEUTRAL 250 MG TABLET PO ONE (13:00)
--- NOTE | 2022-02-25 14:20 | NUR ---
RN NOTE: DC PT DC'D TO [facility] IN STABLE CONDITION. DC INSTRUCTION AND REPORT GIVEN TO AMBULANCE CREW: AMS Addendum: 02/25/22 at 1435 by DAWNA HONG RN RN NOTE: DC PT DC'D TO [facility] IN STABLE CONDITION. DC INSTRUCTION AND REPORT GIVEN TO AMBULANCE CREW: SOFIA #[id number]. ALL PAPERWORKS SIGNED AND COMPLETED. ALL BELONGINGS SENT WITH PT. IV ACCESS INTACT, PATENT, AND FLUSHED: R WRIST 20G AND L FA 20G DUE TO PT RECEIVING IV ANTIBIOTICS AFTER DC. NO COMPLICATIONS NOTED. REPORT CALLED TO [facility]; SEE PREVIOUS NOTE. PT LEFT [id number] IN STABLE CONDITION VIA GURNEY.
== END 2022-02-25 14:21 | DRG 871 ==
LOC: ER 14:55 → ICU 16:27 → TELE1 02-22 16:03
PROVIDERS: ADMIT Internal Medicine; ATTEND Internal Medicine
DX: A41.1 Sepsis due to other specified staphylococcus (principal); E43 Unspecified severe protein-calorie malnutrition; G93.41 Metabolic encephalopathy; J15.6 Pneumonia due to other Gram-negative bacteria; N17.0 Acute kidney failure with tubular necrosis; I21.A1 Myocardial infarction type 2; J69.0 Pneumonitis due to inhalation of food and vomit; I69.351 Hemiplegia and hemiparesis following cerebral infarction affecting right dominant side; E87.2 Acidosis; R64 Cachexia; I25.10 Atherosclerotic heart disease of native coronary artery without angina pectoris; Z20.822 Contact with and (suspected) exposure to COVID-19; I10 Essential (primary) hypertension; R27.8 Other lack of coordination; E78.5 Hyperlipidemia, unspecified; Z96.641 Presence of right artificial hip joint; Z79.01 Long term (current) use of anticoagulants; Z79.899 Other long term (current) drug therapy; Y95 Nosocomial condition; Z86.16 Personal history of COVID-19; Z87.891 Personal history of nicotine dependence; I48.91 Unspecified atrial fibrillation; R09.02 Hypoxemia; B95.61 Methicillin susceptible Staphylococcus aureus infection as the cause of diseases classified elsewhere; Z74.09 Other reduced mobility; S90.01XA Contusion of right ankle, initial encounter; X58.XXXA Exposure to other specified factors, initial encounter; Y92.9 Unspecified place or not applicable; S90.31XA Contusion of right foot, initial encounter; R23.8 Other skin changes
CPT/HCPCS: 36415; 36600; 70450-TC; 71045-TC; 80048-TC; 80076-TC; 80162-TC; 80202-TC; 81001; 82803-TC; 82962-TC; 83605-TC; 83615-TC; 83735-TC; 83880; 84100-TC; 84484-TC; 85025-TC; 85378-TC; 85730-TC; 86140-TC; 87040-TC; 87070-TC; 87081-TC; 87086-TC; 87186-TC; 94799-TC; A6253; C9803; G0378; J0692; J1100; J2543; J3370; J3475; J7030; J7050; J7060; U0003